=== PATIENT | female | born 1995 | race Caucasian/White ===

== ENCOUNTER 2021-12-05 13:06 | Outpatient (REF) | payer BC, SELFPAY ==
--- NOTE | 2021-12-05 08:45 | PAPFT_PTH ---
PATIENT: Radha Newberry LOC: N U#:[id number] AGE/SX: 26/F ROOM: RE12/05/[address]: Edyta Durant NP : 1995 BED: DIS: 12/05/2021 SPEC #: [id number] RECD: 12/05/21 17:59 STATUS: DEVIN REFawad #: [id number] JANNA: 12/05/21 08:[address]: Edyta Durant NP DEPT: FOR[facility], 1928–1983 Cytology RECD BY: Eboni Oliveira Tissues: 1 - CX/ENDOCX FOR PAP SMEARS Procedures: PAP THIN PREP/[facility] Screening Comments: [id number]
== END 2021-12-05 13:07 | disposition home or self-care (01) ==
LOC: LBN 13:06
PROVIDERS: Visit Provider Nurse Practitioner Women's Health
DX: Z12.4 Encounter for screening for malignant neoplasm of cervix (principal)
CPT/HCPCS: 88142

== ENCOUNTER → 2023-12-19 03:43 | Outpatient (CLI) | payer BC, SELFPAY ==
--- NOTE | 2023-12-19 12:45 | DI.MRI_ITS ---
Exam(s) MR BRAIN WO EXAM: MR BRAIN WO CLINICAL HISTORY: R51.9 GREER TECHNIQUE: Multiplanar multisequence MRI of the brain was performed. COMPARISON: No exams were available for comparison FINDINGS: VENTRICLES AND EXTRA AXIAL SPACES: Normal in size and morphology for the patient's age. MIDLINE SHIFT: None. CEREBRAL PARENCHYMA: No focus of restricted diffusion to suggest acute infarct. No space-occupying le norm identified. HEMORRHAGE: None. BRAINSTEM/CEREBELLUM: Normal. VISUALIZED PARANASAL SINUSES/MASTOIDS:Mucous retention cysts at the floor of the maxillary sinuses. Vasculature: Normal flow void. PITUITARY GLAND: Unremarkable. ORBITS: Unremarkable. IMPRESSION: Unremarkable MRI of the brain. DATA REPOSITORY:
== END ==
PROVIDERS: Visit Provider Physician Assistant
DX: R51.9 Headache, unspecified (principal)
CPT/HCPCS: 70551

== ENCOUNTER 2024-01-03 11:39 | Outpatient (REF) | payer BC, SELFPAY ==
[2024-01-03 16:05] LABS: Hemoglobin A1C 5.5 % (<5.7)
[2024-01-03 16:29] LABS: Calculated LDL 80 mg/dL (<100); Cholesterol 151 mg/dL (<200); HDL Cholesterol 48 mg/dL (40-60); Triglyceride 117 mg/dL (<150)
[2024-01-04 11:11] LABS: Abs Immature Grans 0.02 10^3/uL (0.0-0.06); Absolute Basophil Count 0.07 10^3/uL (0.0-0.2); Absolute Eosinophil Count 0.03 10^3/uL (0.0-0.7); Absolute Lymphocyte Count 1.56 10^3/uL (1.2-3.4); Absolute Monocyte Count 0.59 10^3/uL (0.1-0.8); Absolute Neutrophil Count 4.38 10^3/uL (1.2-6.7); Basophils % 1.1 %; Eosinophils % 0.5 %; HCT 38.5 % (36.0-46.0); HGB 12.9 g/dL (11.2-15.7); Immature Grans % 0.3 %; Lymphocytes % 23.5 %; MCH 28.5 pg (27.0-33.0); MCHC 33.5 % (32.0-36.0); MCV 85 fL (80-95); MPV 11.8 fL (8.0-11.0); Monocytes % 8.9 %; Neutrophils % 65.7 %; Platelet Count 276 10^3/uL (130-400); RBC 4.53 10^6/uL (3.93-5.22); RDW 12.2 % (11.7-14.6); RDW-SD 37.9 fL; WBC 6.65 10^3/uL (4.4-10.8)
== END 2024-01-03 11:40 | disposition home or self-care (01) ==
LOC: NCHCN 11:39
PROVIDERS: PCP Physician Assistant; Visit Provider Physician Assistant
DX: D72.829 Elevated white blood cell count, unspecified (principal); Z13.220 Encounter for screening for lipoid disorders; Z13.1 Encounter for screening for diabetes mellitus
CPT/HCPCS: 80061; 83036; 85025

== ENCOUNTER 2024-08-18 16:42 | Outpatient (REF) | payer BC, SELFPAY ==
[2024-08-18 21:18] LABS: Abs Immature Grans 0.04 10^3/uL (0.0-0.06); Absolute Eosinophil Count 0.01 10^3/uL (0.0-0.7); Absolute Lymphocyte Count 1.47 10^3/uL (1.2-3.4); Absolute Monocyte Count 0.64 10^3/uL (0.1-0.8); Basophils % 0.5 %; Eosinophils % 0.1 %; HCT 42.8 % (36.0-46.0); HGB 14.6 g/dL (11.2-15.7); Immature Grans % 0.3 %; Lymphocytes % 11.5 %; MCH 28.9 pg (27.0-33.0); MCHC 34.1 % (32.0-36.0); MCV 85 fL (80-95); MPV 11.2 fL (8.0-11.0); Neutrophils % 82.6 %; Platelet Count 330 10^3/uL (130-400); RBC 5.05 10^6/uL (3.93-5.22); RDW 11.9 % (11.7-14.6); RDW-SD 36.6 fL; WBC 12.75 10^3/uL (4.4-10.8)
[2024-08-18 21:25] LABS: Absolute Basophil Count 0.06 10^3/uL (0.0-0.2); Absolute Neutrophil Count 10.53 10^3/uL (1.2-6.7)
[2024-08-18 21:36] LABS: ALT 23 U/L (14-59); AST 14 U/L (15-37); Albumin 4.5 g/dL (3.4-5.0); Alkaline Phosphatase 59 U/L (46-116); Amylase 57 U/L (25-115); Anion Gap 9.3 mmol/L (3-11); BUN 8 mg/dL (7-18); Bilirubin, Total 0.52 mg/dL (0.2-1.0); CO2 24.7 mmol/L (21.0-32.0); CREATININE 0.8 mg/dL (0.55-1.02); Chloride 106 mmol/L (98-107); Glucose 89 mg/dL (74-106); Lipase 85 U/L (<78); Sodium 140 mmol/L (136-145); Total Protein 7.8 g/dL (6.4-8.2)
[2024-08-18 21:40] LABS: Calcium 9.5 mg/dL (8.5-10.1)
== END 2024-08-18 16:43 | disposition home or self-care (01) ==
LOC: LBN 16:42
PROVIDERS: PCP Physician Assistant; Visit Provider Nurse Practitioner Family
DX: R10.9 Unspecified abdominal pain (principal); R10.13 Epigastric pain; R07.81 Pleurodynia
CPT/HCPCS: 80053; 83690; 82150; 85025

== ENCOUNTER 2024-08-22 15:39 | Outpatient (REF) | payer BC, SELFPAY ==
[2024-08-22 15:39] LABS: HCT 37.5 % (36.0-46.0); HGB 12.6 g/dL (11.2-15.7); MCH 28.5 pg (27.0-33.0); MCHC 33.6 % (32.0-36.0); MCV 85 fL (80-95); MPV 11.5 fL (8.0-11.0); Platelet Count 306 10^3/uL (130-400); RBC 4.42 10^6/uL (3.93-5.22); RDW-SD 37.4 fL; WBC 6.72 10^3/uL (4.4-10.8)
[2024-08-22 15:55] LABS: Lipase 50 U/L (<78)
== END 2024-08-22 15:40 | disposition home or self-care (01) ==
LOC: NCHCN 15:39
PROVIDERS: PCP Physician Assistant; Visit Provider Physician Assistant
DX: R10.9 Unspecified abdominal pain (principal)
CPT/HCPCS: 83690; 85027